=== PATIENT | female | born 1960 | race Caucasian/White ===

== ENCOUNTER → 2021-12-03 | Day surgery (SDC) | payer BC | END | disposition home or self-care (01) | LOC: MAMMO 07:14 | PROVIDERS: ATTEND Pediatrics | PROC: 0H9T3ZX Drainage of Right Breast, Percutaneous Approach, Diagnostic (ICD-10-PCS; principal; 2021-12-03) | DX: N60.21 Fibroadenosis of right breast (principal); N60.81 Other benign mammary dysplasias of right breast | CPT/HCPCS: 19283; 76098; 88305 ==